=== PATIENT | male | born 2000 | race Caucasian/White ===

== ENCOUNTER → 2021-01-02 | Outpatient (CLI) | payer OTHER ==
--- NOTE | 2021-01-02 14:04 | Diagnostic Imaging Report ---
INDICATION: Pain to right hand. Punched wall. FINDINGS: 3 views. There is a nondisplaced transverse fracture along the base of the 5th metacarpal. MP joints appear normal. The phalanges are normal. IMPRESSION: Nondisplaced fracture along the base of the proximal 5th metacarpal. Dictated by: Dictated on workstation # [id number]
== END ==
LOC: RAD 13:36
PROVIDERS: ATTEND Nurse Practitioner Family
DX: S62.346A Nondisplaced fracture of base of fifth metacarpal bone, right hand, initial encounter for closed fracture (principal); X58.XXXA Exposure to other specified factors, initial encounter
CPT/HCPCS: 73130

== ENCOUNTER 2022-03-27 15:06 | Inpatient (IN) | payer OTHER ==
[~2022-03-27] VITALS: Ht 180.3 cm; Wt 67.4 kg
--- NOTE | 2022-03-27 15:38 | ED Abdominal Pain ---
General Chief Complaint: General Problems/Pain Stated Complaint: WEAKNESS - BURNING WITH URINATION Source of Information: Patient Exam Limitations: No Limitations History of Present Illness Date Seen by Provider: March 27, 2022 Time Seen by Provider: 15:19 Initial Comments Patient to the ER by private conveyance with his roommate and chief complaint for about 1 day now has been having malaise, weakness, general abdominal pain and body aches. No fevers chills nausea vomiting diarrhea or constipation. No other sick contacts. No recent travel or unsafe drinking water exposure. He has a history of diabetes and has not been urinating at all lately. He says he been in DKA once. He said his pump did not get turned on overnight and so he gives of a larger than normal bolus this morning and his blood sugar was 160 per nursing on arrival. Allergies and Home Medications Allergies Coded Allergies: Sulfa (Sulfonamide Antibiotics) (Verified Allergy, Unknown, 03/27/22) oxybutynin (Verified Allergy, Unknown, 03/27/22) Patient Home Medication List Home Medication List Reviewed: Yes Review of Systems Review of Systems Constitutional: No chills, No diaphoresis; malaise, weakness EENTM: No Blurred Vision, No Double Vision Respiratory: Denies Cough, Denies Shortness of Air Cardiovascular: Denies Chest Pain, Denies Lightheadedness Gastrointestinal: See HPI, Abdominal Pain; Denies Constipated, Denies Diarrhea, Denies Nausea Genitourinary: Denies Burning, Denies Discharge Musculoskeletal: No back pain, No joint pain Psychiatric/Neurological: Denies Anxiety, Denies Depressed All Other Systems Reviewed Negative Unless Noted: Yes Past Wejugox-Askxlq-Vtodel Hx Patient Social History Tobacco Use?: No Use of E-Cig and/or Vaping dev: No Substance use?: Yes Substance type: Marijuana Substance frequency: Once in a while Alcohol Use?: Yes Alcohol type: Beer Alcohol Frequency: Couple times a week Physical Exam Vital Signs Vital Signs - First Documented 03/27/22 15:15 Temp 36.3 Pulse 93 Resp 16 B/P (MAP) 139/69 (92) Pulse Ox 100 Capillary Refill : Height/Weight/BMI Height: '" Weight: lbs. oz. kg; BMI Method: General Appearance: WD/WN, mild distress HEENT: PERRL/EOMI; No pharynx normal (Mildly dry oral mucosa) Neck: full range of motion, supple, normal inspection Respiratory: lungs clear, normal breath sounds, no respiratory distress, no accessory muscle use Cardiovascular: normal peripheral pulses, regular rate, rhythm Gastrointestinal: normal bowel sounds, soft, tenderness (All 4 quadrants without Horne sign, Rovsing sign, McBurney's point tenderness or rebound tenderness. No mesenteric signs) Extremities: normal range of motion, non-tender, normal inspection, normal capillary refill Neurologic/Psychiatric: alert, normal mood/affect, oriented x 3 Skin: normal color, warm/dry Progress/Results/Core Measures Results/Orders Lab Results Laboratory Tests Test 03/27/22 13:32 03/27/22 15:19 03/27/22 15:28 Range/Units Urine Color YELLOW Urine Clarity CLEAR Urine pH 5.5 5-9 Urine Specific [place] >=1.030 1.016-1.022 Urine Protein 2+ H NEGATIVE Urine Glucose (UA) TRACE H NEGATIVE Urine Ketones 3+ H NEGATIVE Urine Nitrite NEGATIVE NEGATIVE Urine Bilirubin 1+ H NEGATIVE Urine Urobilinogen 0.2 < = 1.0 MG/DL Urine Leukocyte Esterase NEGATIVE NEGATIVE Urine RBC (Auto) TRACE-I H NEGATIVE Urine RBC 0-2 /HPF Urine WBC RARE /HPF Urine Squamous Epithelial Cells 0-2 /HPF Urine Crystals NONE /LPF Urine Bacteria TRACE /HPF Urine Casts NONE /LPF Urine Mucus SMALL H /LPF Urine Culture Indicated NO Glucometer 160 H 70-110 MG/DL White Blood Count 11.1 H 4.3-11.0 10^3/uL Red Blood Count 5.07 4.30-5.52 10^6/uL Hemoglobin 16.2 13.3-17.7 g/dL Hematocrit 47 40-54 % Mean Corpuscular Volume 93 80-99 fL Mean Corpuscular Hemoglobin 32 25-34 pg Mean Corpuscular Hemoglobin Concent 34 32-36 g/dL Red Cell Distribution Width 11.9 10.0-14.5 % Platelet Count 290 130-400 10^3/uL Mean Platelet Volume 9.5 9.0-12.2 fL Immature Granulocyte % (Auto) 1 % Neutrophils (%) (Auto) 75 42-75 % Lymphocytes (%) (Auto) 18 12-44 % Monocytes (%) (Auto) 5 0-12 % Eosinophils (%) (Auto) 0 0-10 % Basophils (%) (Auto) 1 0-10 % Neutrophils # (Auto) 8.3 H 1.8-7.8 10^3/uL Lymphocytes # (Auto) 2.0 1.0-4.0 10^3/uL Monocytes # (Auto) 0.6 0.0-1.0 10^3/uL Eosinophils # (Auto) 0.0 0.0-0.3 10^3/uL Basophils # (Auto) 0.1 0.0-0.1 10^3/uL Immature Granulocyte # (Auto) 0.1 0.0-0.1 10^3/uL Sodium Level 137 135-145 MMOL/L Potassium Level 3.2 L 3.6-5.0 MMOL/L Chloride Level 99 98-107 MMOL/L Carbon Dioxide Level 12 L 21-32 MMOL/L Anion Gap 26 H 5-14 MMOL/L Blood Urea Nitrogen 12 7-18 MG/DL Creatinine 1.25 0.60-1.30 MG/DL Estimat Glomerular Filtration Rate 83 BUN/Creatinine Ratio 10 Glucose Level 166 H 70-105 MG/DL Calcium Level 8.6 8.5-10.1 MG/DL Corrected Calcium 8.2 L 8.5-10.1 MG/DL Total Bilirubin 0.6 0.1-1.0 MG/DL Aspartate Amino Transf (AST/SGOT) 23 5-34 U/L Alanine Aminotransferase (ALT/SGPT) 28 0-55 U/L Alkaline Phosphatase 80 40-136 U/L C-Reactive Protein High Sensitivity 0.10 0.00-0.50 MG/DL Total Protein 7.4 6.4-8.2 GM/DL Albumin 4.5 3.2-4.5 GM/DL Beta-Hydroxybutyrate (Chem panel) 9.96 H 0.00-0.27 MMOL/L My Orders Orders - VICENTE GERBER Ua Culture If Indicated (03/27/22 15:08) Ed Iv/Invasive Line Start (03/27/22 15:32) Ns Iv 1000 Ml (Sodium Chloride 0.9%) (03/27/22 15:45) Ketorolac Injection (Toradol Injection) (03/27/22 15:45) Cbc With Automated Diff (03/27/22 15:32) Comprehensive Metabolic Panel (03/27/22 15:32) Hs C Reactive Protein (03/27/22 15:32) Beta Hydroxybutyrate (03/27/22 15:32) Accucheck Stat ONCE (03/27/22 15:32) Medications Given in ED Current Medications Medications Dose Ordered Sig/Tim Route Start Time Stop Time Status Last Admin Dose Admin Ketorolac Tromethamine 30 mg ONCE ONCE IVP 03/27/22 15:45 03/27/22 15:46 DC 03/27/22 15:43 30 MG Vital Signs/I&O 03/27/22 15:15 Temp 36.3 Pulse 93 Resp 16 B/P (MAP) 139/69 (92) Pulse Ox 100 Progress Progress Note #1: Time: 15:37 Progress Note Nonsurgical abdominal exam with relatively aseptic vital signs except with a heart rate above 90. Plan to get some labs, beta hydroxybutyrate, urinalysis. Progress Note #2: Time: 16:40 Progress Note The patient is in diabetic ketoacidosis. He will stop his insulin pump and we will put him in the unit on an insulin drip. Departure Communication (Admissions) Time/Spoke to Admitting Phy: 16:41 Discussed the case with Dr. Giron and he will put in queued orders and put the patient in the ICU on diabetic ketoacidosis order set Impression Primary Impression: Diabetic ketoacidosis Qualified Codes: E10.10 - Type 1 diabetes mellitus with ketoacidosis without coma Disposition: ADMITTED INPATIENT Condition: Stable Admissions Decision to Admit Reason: Admit from ER (General) Decision to Admit/Date: March 27, 2022 Time/Decision to Admit Time: 16:40 Departure-Patient Inst. Referrals: NO,LOCAL PHYSICIAN (PCP/Family) Primary Care Physician VICENTE GERBER March 27, 2022 15:38
[2022-03-27 15:39] LABS: BASOPHILS # (AUTO) 0.1 10^3/uL (0.0-0.1); BASOPHILS % (AUTO) 1 % (0-10); EOSINOPHILS % (AUTO) 0 % (0-10); HEMATOCRIT 47 % (40-54); HEMOGLOBIN 16.2 g/dL (13.3-17.7); LYMPHOCYTES % (AUTO) 18 % (12-44); MEAN CORPUSCULAR HEMOGLOBIN 32 pg (25-34); MEAN CORPUSCULAR HGB CONC 34 g/dL (32-36); MEAN CORPUSCULAR VOLUME 93 fL (80-99); MEAN PLATELET VOLUME 9.5 fL (9.0-12.2); MONOCYTES # (AUTO) 0.6 10^3/uL (0.0-1.0); MONOCYTES % (AUTO) 5 % (0-12); NEUTROPHILS # (AUTO) 8.3 10^3/uL (1.8-7.8); NEUTROPHILS % (AUTO) 75 % (42-75); PLATELET COUNT 290 10^3/uL (130-400); WHITE BLOOD COUNT 11.1 10^3/uL (4.3-11.0)
[2022-03-27] MEDS ORDERED: NS IV 1000 ML 1,000 ML IV SCH ×2 (15:45→17:15)
[2022-03-27] MEDS ORDERED: KETOROLAC 30 MG/ML VIAL IVP ONE (15:45)
[2022-03-27 15:50] LABS: ALBUMIN 4.5 GM/DL (3.2-4.5); POTASSIUM 3.2 MMOL/L (3.6-5.0)
[2022-03-27 15:51] LABS: CLARITY,URINE CLEAR; COLOR,URINE YELLOW; GLUCOSE, URINE (UA) TRACE (NEGATIVE); KETONES,URINE 3+ (NEGATIVE); LEUKOCYTE ESTERASE ,URINE NEGATIVE (NEGATIVE); NITRITE,URINE NEGATIVE (NEGATIVE); PH,URINE 5.5 (5-9); PROTEIN,URINE 2+ (NEGATIVE)
[2022-03-27 15:51] LABS: CALCIUM 8.6 MG/DL (8.5-10.1)
[2022-03-27 15:52] LABS: TOTAL PROTEIN 7.4 GM/DL (6.4-8.2)
[2022-03-27 15:54] LABS: BILIRUBIN,TOTAL 0.6 MG/DL (0.1-1.0)
[2022-03-27 15:56] LABS: CREATININE SERUM 1.25 MG/DL (0.60-1.30)
[2022-03-27 16:01] LABS: BILIRUBIN,URINE 1+ (NEGATIVE); RBC,URINE 0-2 /HPF; SQUAMOUS EPITHELIAL CELL,UR 0-2 /HPF; WBC,URINE RARE /HPF
[2022-03-27 16:03] LABS: BACTERIA,URINE TRACE /HPF
[2022-03-27 17:19] VITALS: BP 114/68
[2022-03-27] MEDS ORDERED: POTASSIUM CL 10MEQ/50ML IVPB 200 ML IV ONE (17:25)
[2022-03-27] MEDS ORDERED: D5 1/2 NS 1000 ML IV SOLUTION 1,000 ML IV ONE (17:25)
[2022-03-27] MEDS: POTASSIUM CL 10MEQ/50ML IVPB 50 ML IV SCH ×2 (18:00→19:36)
--- NOTE | 2022-03-27 18:09 | Tele-ICU Consult ---
History of Present Illness History of Present Illness Date Seen by Provider: March 27, 2022 Time Seen by Provider: 18:08 Date of Admission (Tele-ICU Physician , consultation) Available chart/ vitals / labs / Images reviewed H&P is from ER notes Patient's information available about PMH, Shx, Fhx allergy reviewed in EMR. ROS as per chart and RN report Now in ICU, hemodynamically stable Video assessment done using teleICU camera, rest of exam as per RN Discussed with RN. A/P DKA -precipitated by infection, presumed due to pump malfunction ? -Unclear precipitant, No suspicious for new infection as per ER notes *Insulin drip continue to monitor for resolution of acidosis, AG and electrolytes. Continue hydration. renal function and lytes WNL Leukocytosis very mild - reactive, UA unremarkable >off ABX , follow VTE Prophylaxis: Stress Ulcer Prophylaxis: Plans in collaboration with bedside consultants and IM MDs. Discussed with RN to reach out if any questions or concerns A total of 20 minutes of critical care time was devoted to this patient today, required to treat and/or prevent further deterioration of critical care condition ( as above ) . Allergies and Home Medications Allergies Coded Allergies: Sulfa (Sulfonamide Antibiotics) (Verified Allergy, Unknown, 03/27/22) oxybutynin (Verified Allergy, Unknown, 03/27/22) Past Medical/Social/Family Hx Patient Social History Tobacco Use?: No Use of E-Cig and/or Vaping dev: No Substance use?: Yes Substance type: Marijuana Substance frequency: Once in a while Alcohol Use?: Yes Alcohol type: Beer Alcohol Frequency: Couple times a week Immunizations Up To Date Influenza Vaccine Up-to-Date: Yes; Up-to-Date Current Status Communicates: Verbally Primary Language: British Preferred Spoken Language: British Is interpretation needed?: No Implanted or Applied Medical D: Insulin pump Review of Systems Constitutional: see HPI Focused Exam Height, Weight, BMI Height: '" Weight: lbs. oz. kg; 21.00 BMI Method: Exam Exam Patient acknowledged, consented, and participated in this virtual visit which was conducted using real time audio/video Vital Signs Date Time Temp Pulse Resp B/P (MAP) Pulse Ox O2 Delivery O2 Flow Rate FiO2 03/27/22 17:19 105 16 114/68 100 03/27/22 15:15 36.3 93 16 139/69 (92) 100 Height & Weight Height: '" Weight: lbs. oz. kg; 21.00 BMI Method: General Appearance: No Apparent Distress Gastrointestinal: normal bowel sounds, soft, tenderness (All 4 quadrants without Horne sign, Rovsing sign, McBurney's point tenderness or rebound tenderness. No mesenteric signs) Results Lab Laboratory Tests 03/27/22 15:28 Assessment/Plan Assessment/Plan ` BEBE PATEL MD March 27, 2022 18:09
[2022-03-27] MEDS ORDERED: OMEP10SU2 PO (18:29)
[2022-03-27] MEDS ORDERED: INSU100I14 (18:29)
[2022-03-27] MEDS: D5 1/2 NS 1000 ML IV SOLUTION 1,000 ML IV SCH (19:26)
[2022-03-27] MEDS: 1/2 NS IV SOLUTION 1,000 ML IV SCH (19:26)
[2022-03-27 20:08] LABS: CALCIUM 8.2 MG/DL (8.5-10.1); CREATININE SERUM 1.07 MG/DL (0.60-1.30); POTASSIUM 3.7 MMOL/L (3.6-5.0)
[2022-03-28] MEDS: POTASSIUM CL 10MEQ/50ML IVPB 50 ML IV SCH ×8 (01:10→07:28)
[2022-03-28 01:22] LABS: POTASSIUM 3.2 MMOL/L (3.6-5.0)
[2022-03-28 01:23] LABS: CALCIUM 7.9 MG/DL (8.5-10.1)
[2022-03-28] MEDS: D5 1/2 NS 1000 ML IV SOLUTION 1,000 ML IV SCH ×2 (03:02→07:29)
[2022-03-28] MEDS: 1/2 NS IV SOLUTION 1,000 ML IV SCH ×5 (05:12→13:15)
[2022-03-28 05:30] LABS: POTASSIUM 3.4 MMOL/L (3.6-5.0)
[2022-03-28 05:31] LABS: CALCIUM 7.6 MG/DL (8.5-10.1)
[2022-03-28 05:36] LABS: CREATININE SERUM 0.83 MG/DL (0.60-1.30); PHOSPHORUS 2.1 MG/DL (2.3-4.7)
[2022-03-28 05:38] LABS: MAGNESIUM 1.5 MG/DL (1.6-2.4)
[2022-03-28] MEDS ORDERED: MAGNESIUM 1 GM/100 ML IVPB 100 ML IV SCH (06:00)
[2022-03-28] MEDS ORDERED: POTASSIUM CL 10MEQ/50ML IVPB 50 ML IV SCH (06:00)
[2022-03-28] MEDS ORDERED: KCL 20 MEQ TAB (K-DUR) PO SCH (06:00)
[2022-03-28] MEDS ORDERED: SODIUM PHOSPHATE INJ 30 MM in NS (IVPB) 250 ML INJ ONE (08:30)
--- NOTE | 2022-03-28 09:32 | Tele-ICU Progress Note ---
Subjective Date Seen by a Provider: March 28, 2022 Time Seen by a Provider: 09:32 Subjective/Events-last exam Patient today states that he is feeling much better. His anion gap is closed. A repeat BMP is being done. Currently he does not have any abdominal pain. His strength improved. 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 Hemodynamically stable. Review of Systems ROS PER RN Sepsis Event Evaluation Height, Weight, BMI Height: '" Weight: lbs. oz. kg; 20.73 BMI Method: Exam Exam Patient acknowledged, consented, and participated in this virtual visit which was conducted using real time audio/video Vital Signs Date Time Temp Pulse Resp B/P (MAP) Pulse Ox O2 Delivery O2 Flow Rate FiO2 03/28/22 08:00 70 16 116/72 100 Room Air 03/28/22 07:54 36.4 03/28/22 07:00 73 03/28/22 07:00 73 19 112/71 98 Room Air 03/28/22 06:00 87 21 109/69 99 Room Air 03/28/22 05:00 75 11 123/77 100 Room Air 03/28/22 04:00 83 12 117/75 98 Room Air 03/28/22 04:00 Room Air 03/28/22 04:00 37.0 03/28/22 03:00 81 14 124/69 99 Room Air 03/28/22 02:00 84 18 113/68 98 Room Air 03/28/22 01:00 92 03/28/22 00:00 Room Air 03/28/22 00:00 103 13 131/75 99 Room Air 03/28/22 00:00 107 18 124/70 98 Room Air 03/27/22 23:00 97 18 136/63 100 Room Air 03/27/22 22:00 109 19 136/77 100 Room Air 03/27/22 21:00 133 21 100 Room Air 03/27/22 20:00 114 17 100 Room Air 03/27/22 20:00 Room Air 03/27/22 19:00 110 18 141/74 100 Room Air 03/27/22 19:00 115 03/27/22 18:12 87 03/27/22 18:00 87 25 128/66 100 Room Air 03/27/22 17:19 105 16 114/68 100 03/27/22 15:15 36.3 93 16 139/69 (92 100 I & O 03/28/22 07:00 Intake Total 4500 ml Output Total 1150 ml Balance 3350 ml Height & Weight Height: '" Weight: lbs. oz. kg; 20.73 BMI Method: General Appearance: No Apparent Distress Gastrointestinal: normal bowel sounds, soft, tenderness (All 4 quadrants wi thout Horne sign, Rovsing sign, McBurney's point tenderness or rebound tenderness. No mesenteric signs) Other comments PE PER RN Results Lab Laboratory Tests 03/27/22 15:28 03/27/22 19:30 03/28/22 00:59 03/28/22 04:10 Assessment/Plan Assessment/Plan 1. Diabetic ketoacidosis improving and currently his anion gap is closed. 2. Dehydration improving. Recommendations 1. May discontinue IV insulin and restart on his regular insulin as per home orders 2. May transfer out of ICU from critical care point of view today. 3. Electrolytes are being replaced. Critical Care: Critically Ill Patient Time spent with patient (mins): 20 JS GUTIERRES MD March 28, 2022 09:32
[2022-03-28 09:55] LABS: POTASSIUM 3.5 MMOL/L (3.6-5.0)
[2022-03-28 09:56] LABS: CALCIUM 7.8 MG/DL (8.5-10.1)
[2022-03-28 10:00] LABS: CREATININE SERUM 0.76 MG/DL (0.60-1.30)
--- NOTE | 2022-04-17 09:01 | Discharge Summary ---
Discharge Summary Hospital Course Problems/Dx: (1) Diabetic ketoacidosis Status: Acute Qualifiers: Qualified Codes: E10.10 - Type 1 diabetes mellitus with ketoacidosis without coma Hospital Course Date of Admission: March 27, 2022 at 16:43 Admission Diagnosis : T1DM with DKA Family Physician/Provider: Minal White Physician Date of Discharge: 03/28/22 Discharge Diagnosis: T1DM with DKA Hospital Course: Aly Beckham is a 21 year old male with T1DM who was admitted with DKA. He had an issue with his insulin pump and it was not turned on. He was started on an insulin drip and his DKA resolved. He also had an RAMAKRISHNA which resolved with IV fluids. He was transitioned back to his insulin pump and he discharged home in stable condition. 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 Labs and Pending Lab Test: Microbiology 03/27/22 MRSA Screen - Final, Complete MRSA not isolated Home Meds Active Prilosec (Omeprazole Magnesium) 10 Mg Suspdr.pkt 10 Mg PO DAILY 30 Days Reported Novolog Flexpen (Insulin Aspart) 100 Unit/Ml (3 Ml) Solution USES TO FILL INSULIN PUMP. INSULIN ADMINISTERED PER PUMP Assessment/Pt Instructions See instructions Discharge Planning: <30 minutes discharge planning Discharge Instructions Discharge Diet: ADA Diet Activity as Tolerated: Yes Discharge Physical Examination General Appearance: No Apparent Distress, WD/WN HEENT: PERRL/EOMI, Pharynx Normal Respiratory: Lungs Clear, Normal Breath Sounds, No Respiratory Distress Cardiovascular: Regular Rate, Rhythm, No Edema, No Murmur Gastrointestinal: Normal Bowel Sounds, Non Tender, Soft Extremity: Normal Inspection, Non Tender, No Pedal Edema Skin: Normal Color, Warm/Dry Neurologic/Psychiatric: Alert, Oriented x3, No Motor/Sensory Deficits, Normal Mood/Affect Allergies: Coded Allergies: Sulfa (Sulfonamide Antibiotics) (Verified Allergy, Unknown, 03/27/22) oxybutynin (Verified Allergy, Unknown, 03/27/22) Discharge Summary Date of Admission March 27, 2022 at 16:43 Date of Discharge March 28, 2022 at 13:20 Discharge Date: March 28, 2022 Discharge Time: 13:20 Admission Diagnosis Diabetic ketoacidosis Discharge Diagnosis (1) Diabetic ketoacidosis Status: Acute Qualifiers: Qualified Codes: E10.10 - Type 1 diabetes mellitus with ketoacidosis without coma BERYL GREEN MD Apr 17, 2022 09:00
== END 2022-03-28 13:20 | disposition home or self-care (01) | DRG 919 ==
LOC: EDUNIT# 15:06 → ER 15:08 → ICU 16:43
PROVIDERS: ADMIT Internal Medicine; ATTEND Internal Medicine
DX: T85.694A Other mechanical complication of insulin pump, initial encounter (principal); E10.10 Type 1 diabetes mellitus with ketoacidosis without coma; N17.9 Acute kidney failure, unspecified; F12.90 Cannabis use, unspecified, uncomplicated; D72.829 Elevated white blood cell count, unspecified; E86.0 Dehydration; Z79.4 Long term (current) use of insulin
CPT/HCPCS: 36415; 80048; 80053; 81000; 82010; 82947; 83735; 84100; 85025; 86141; 87081; 96374